=== PATIENT | female | born 1975 | race Caucasian/White ===

== ENCOUNTER 2018-02-18 08:49 | Emergency (ER) | payer BC ==
[~2018-02-18] VITALS: Ht 162.6 cm; Wt 61.0 kg
[2018-02-18] MEDS ORDERED: ONDANSETRON HCL 4MG/2ML INJ IV STA (10:47)
[2018-02-18] MEDS ORDERED: SODIUM CHLORIDE 0.9% 1,000 ML IV ONE (10:47)
[2018-02-18] MEDS ORDERED: MECLIZINE 25MG TABLET PO ONE (11:00)
[2018-02-18] MEDS ORDERED: INSULIN REGULAR (HUMULIN R) 300UNITS/3ML SUBCUT ONE (12:15)
[2018-02-18 12:26] LABS: BASOPHILS % 0.5 % (0.0-2.0); EOSINOPHILS % 0.4 % (0.0-5.0); HEMATOCRIT. 41.2 % (36.0-48.0); HEMOGLOBIN. 13.9 g/dL (12.0-16.0); LYMPHOCYTES % 19.3 % (20.0-50.0); MEAN CORPUSCULAR HEMOGLOBIN 29.6 pg (28.0-32.0); MEAN CORPUSCULAR VOLUME 87.5 fL (81.0-99.0); MEAN PLATELET VOLUME 9.7 fl (7.4-10.4); MONOCYTES % 3.5 % (2.0-8.0); NEUTROPHILS % 76.3 % (40.0-76.0); PLATELET 238 x1000/uL (130-400); RED BLOOD CELL COUNT 4.71 mill/uL (4.2-5.4)
[2018-02-18 12:33] LABS: CHLORIDE 98 mEq/L (98-107)
[2018-02-18 13:20] LABS: HCG SCREEN NEGATIVE
[2018-02-18 15:40] VITALS: BP 122/68
[2018-02-18 19:34] LABS: CLARITY URINE CLEAR (CLEAR); COLOR URINE YELLOW (YELLOW); KETONES URINE 1+ (NEGATIVE); LEUKOCYTE ESTERASE URINE NEGATIVE (NEGATIVE); NITRITE URINE NEGATIVE (NEGATIVE); OCCULT BLOOD URINE NEGATIVE (NEGATIVE); PROTEIN URINE NEGATIVE (NEGATIVE); UROBILINOGEN URINE 0.2 E.U./dL (0.2-1.0)
== END 2018-02-18 15:43 | disposition home or self-care (01) ==
LOC: ER 09:49
DX: R42 Dizziness and giddiness (principal); E11.65 Type 2 diabetes mellitus with hyperglycemia; G93.0 Cerebral cysts
CPT/HCPCS: 36415; 70450; 80053; 81003; 81025; 82962; 84703; 85025; 96361; 96372; 96374; 99284; J1815; J2405; J7030; J8597